=== PATIENT | female | born 1970 | race Caucasian/White ===

== ENCOUNTER 2021-05-07 11:38 | Outpatient (REF) | payer OTHER, SELFPAY ==
[2021-05-07 14:30] LABS: Thyroid Stimulating Hormone 0.33 uIU/mL (0.32-4.0)
[2021-05-07 14:49] LABS: Vitamin B12 291 pg/mL (200-900)
== END 2021-05-07 11:39 | disposition home or self-care (01) ==
LOC: HO.HMGCLDS 11:38
PROVIDERS: Internal Medicine; PCP Hospitalist; Visit Provider Psychiatry & Neurology Neurology
DX: R20.0 Anesthesia of skin (principal)
CPT/HCPCS: 36415; 82607; 84443